=== PATIENT | female | born 1985 | race Caucasian/White ===

== ENCOUNTER 2023-02-18 09:31 | Emergency (ER) | payer BC ==
[2023-02-18] MEDS ORDERED: LIDOCAINE 1% 2 ML VIAL SUBQ STA (11:35)
--- NOTE | 2023-02-18 11:36 | ED Physician Documentation ---
PD HPI UPPER EXT INJURY - Stated complaint Stated Complaint: RT THUMB LAC - Chief complaint Chief Complaint: Laceration - History obtained from History obtained from: Patient, Family () - History of Present Illness Location: Left, Finger (thumb lacerated with knife) Type of injury: Laceration Where injury occurred: Home Timing - onset: Today Timing - duration: Minutes Timing - details: Abrupt onset, Still present Improved by: Rest, Immobilization Worsened by: Moving, Palpating Associated symptoms: No: Weakness, Numbness, Tingling, Swelling Similar symptoms before: Has not had sx before Recently seen: Not recently seen - Additonal information Additional information: Vangie Cote is a 37-year-old female who was using a sharp knife to cut a loaf of bread. She lacerated her thumb and comes into the emergency department now with a flap laceration over the tip of her thumb requesting suturing. She is allergic to bacitracin and does not believe she is up-to-date on her tetanus Review of Systems Constitutional: denies: Fever Nose: denies: Congestion Throat: denies: Sore throat Respiratory: denies: Cough GI: denies: Vomiting, Diarrhea PD PAST MEDICAL HISTORY - Past Medical History Past Medical History: Yes Neuro: Migraines Musculoskeletal: Fibromyalgia - Past Surgical History Past Surgical History: Yes /[employer]: Hysterectomy - Allergies Allergies/Adverse Reactions: Allergies Allergy/AdvReac Type Severity Reaction Status Date / Time ciprofloxacin Allergy Anaphylaxis Verified 02/18/23 09:54 erythromycin base Allergy Anaphylaxis Verified 02/18/23 09:54 Sulfa (Sulfonamide Allergy Anaphylaxis Verified 02/18/23 09:54 Antibiotics) acetaminophen [From Tylenol] AdvReac Headache Verified 02/18/23 09:54 codeine AdvReac Headache Verified 02/18/23 09:54 - Social History Does the pt smoke?: No Smoking Status: Never smoker PD ED PE NORMAL - Vitals Vital signs reviewed: Yes (Hypertensive mild) - General General: Alert and oriented X 3, No acute distress, Well developed/nourished - HEENT HEENT: Atraumatic, PERRL, EOMI - Respiratory Respiratory: No respiratory distress - Derm Derm: Normal color, Warm and dry, No rash - Extremities Extremities: No deformity, No edema, Other (Over the tip of the thumb on the ulnar aspect there is a 2.5 cm flap laceration without foreign material.) - Neuro Neuro: Alert and oriented X 3, oil winterizer 2-12 intact, No motor deficit, No sensory deficit, Normal speech Eye Opening: Spontaneous Motor: Obeys Commands Verbal: Oriented GCS Score: 15 - Psych Psych: Normal mood, Normal affect Results - Vitals Vitals: Vital Signs - 24 hr 02/18/23 02/18/23 09:47 12:56 Temperature 36 C L 36.5 C Heart Rate 77 72 Respiratory 20 16 Rate Blood Pressure 145/95 H 130/88 H O2 Saturation 96 98 Procedures - Laceration (location) right thumb Length in cm: 2.5 Wound type: Curved, Flap, Into subcut fat, Clean Neurovascular status: Sensory intact, Motor intact, Vascular intact Tendon involvement: Tendon intact Anesthesia: Lidocaine 1% Wound preparation: Hibiclens, Irrigated copiously NS, Wound explored, To the base Skin layer closure: Nylon, Interrupted, Size #-0 - enter number (5-0), Sutures - enter # (4) Other: Patient tolerated well, No complications, Neurovascular intact, Dressing applied, Tetanus booster given PD Medical Decision Making - ED course Complexity details: considered differential, d/w patient, d/w family ED course: 37-year-old female with a flap laceration to her right thumb is sutured and given a tetanus booster tolerates this well. Departure - Departure Disposition: 01 Home, Self Care Clinical Impression: Thumb laceration Qualifiers: Encounter type: initial encounter Damage to nail status: without damage Foreign body presence: without foreign body Laterality: right Qualified Code(s): S61.011A - Laceration without foreign body of right thumb without damage to nail, initial encounter Condition: Stable Instructions: ED Laceration Hand Follow-Up: Your, doctor [Other] Comments: Vangie, today it looks like you have lacerated your thumb and we are expecting this to heal without incident. You will need to have the sutures removed in 7 to 10 days. Forms: PCP List Discharge Date/Time: 02/18/23 12:56
[2023-02-18] MEDS ORDERED: TETANUS/DIPHTHERIA/PERTUSSIS 0.5 ML SYRINGE IM ONE (12:16)
[2023-02-18 13:03] VITALS: BP 130/88; O2SAT 98
== END 2023-02-18 12:56 | disposition home or self-care (01) ==
LOC: ED 09:31
DX: S61.011A Laceration without foreign body of right thumb without damage to nail, initial encounter (principal); W26.0XXA Contact with knife, initial encounter; Y93.G1 Activity, food preparation and clean up; Z23 Encounter for immunization
CPT/HCPCS: 12001; 90471; 99283

== ENCOUNTER 2023-10-05 15:39 | Outpatient (CLI) | payer BC ==
[2023-10-05] MEDS ORDERED: iohexoL-300 100 ML VIAL ONE (16:00)
[2023-10-05] MEDS: iohexoL-300 100 ML VIAL IVP ONE (16:21)
--- NOTE | 2023-10-06 15:55 | CT Report ---
PROCEDURE: Angio Head/Neck INDICATIONS: HEADACHE TECHNIQUE: After the administration of intravenous contrast, 1 mm thick sections acquired from the aortic arch t hrough the [place] [facility] [place]. 3-dimensional pexcrdd-mwvckqzky-ypepbtqhld (MIP) and/or volume renderin g reformats were acquired of the central intracranial vasculature and neck separately. For radiation dose reduction, the following was used: automated exposure control, adjustment of mA and/or kV acco rding to patient size. CONTRAST: 80ml [id number] COMPARISON: None. FINDINGS: Image quality: Diagnostic. HEAD CT: CSF Spaces: Basal cisterns are patent. No extra-axial fluid collections. Ventricles are normal in size and shape. Brain: No significant abnormality is seen for scanning technique. Skull and face: Calvarium and visualized facial bones appear intact, without suspicious lesions. Sinuses: Visualized sinuses and mastoids are clear. HEAD CT ANGIOGRAPHY: Anterior circulation: Intracranial internal carotid arteries are normal in size and flow. The flow within the paired anterior cerebral arteries is normal and symmetric. The flow within the middle cer ebral arteries is normal and symmetric. The anterior communicating artery is seen. No aneurysms are seen. Posterior circulation: Visualized portions of the vertebral arteries demonstrate normal caliber, and join to form a normal appearing basilar artery. Flow within the posterior cerebral arteries is norm al and symmetric. No aneurysms are seen. NECK CT ANGIOGRAPHY: Carotid system: The great vessels demonstrate a conventional anatomy as they arise from the aortic a rch. The origins of the common carotid arteries appear patent. The common carotid arteries demonstr ate normal caliber and courses. The bifurcation regions are both widely patent. The internal caroti d arteries demonstrate normal calibers and courses. Posterior circulation: Vertebral arteries are codominant. The origins of the vertebral arteries both appear widely patent. The more superior extracranial portions of both vertebral arteries also demon strate normal courses and calibers. They join to form a normal appearing basilar artery. Soft tissues: Visualized neck soft tissues demonstrate no suspicious abnormalities. Bones: No suspicious bony lesions. Visualized cervical spine appears normally aligned. IMPRESSION: No significant intracranial arterial abnormality is seen. No significant abnormality is seen within the arteries of the neck. The estimate of stenosis included in the report of the imaging study was calculated using the NASCET method Reviewed by: Yusra Brennan MD on 10/06/2023 3:54 PM PDT Approved by: Yusra Brennan MD on 10/06/2023 3:54 PM PDT Station ID: [id number]
== END 2023-10-05 15:40 | disposition home or self-care (01) ==
LOC: DI 15:39
PROVIDERS: ATTEND Psychiatry & Neurology Neurology
DX: G44.82 Headache associated with sexual activity (principal)
CPT/HCPCS: 70496; 70498; Q9967